=== PATIENT | male | born 1945 | race Caucasian/White ===

== ENCOUNTER 2017-03-20 09:46 | Emergency (ER) | payer MEDICARE, OTHER ==
[~2017-03-20] VITALS: Ht 185.4 cm; Wt 88.5 kg
[2017-03-20] MEDS ORDERED: OMEP20CA12 (09:57)
[2017-03-20] MEDS ORDERED: NEBI5TAB8 (09:57)
[2017-03-20] MEDS ORDERED: ISOS30TA3 (09:57)
[2017-03-20] MEDS ORDERED: LISI1TAB10 (09:57)
[2017-03-20] MEDS ORDERED: KETOROLAC 60 MG/2 ML VIAL IM STA (09:57)
--- NOTE | 2017-03-20 10:11 | ED Upper Extremity ---
General Chief Complaint: Upper Extremity Stated Complaint: R WRIST SWELLING/PAIN Source: patient Exam Limitations: no limitations History of Present Illness Time seen by provider: 09:55 Initial Comments Here with complaint of right wrist pain. States that he was working on fence on Wednesday or and night went bowling. However little bit of pain but woke up with more pain Wednesday to the wrist area. Woke up this morning with swelling and more significant pain. Unsure of what caused the injury. States that he did have an injury similar many years ago but has not had problems since like this. Denies numbness of the fingers. Retains movement but painful. Does feel like his fingers are drawing up with the pain and swelling. Ozmar-[id number]. 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 Onset: other (a few days ago) Severity: moderate Pain/Injury Location: left wrist Method of Injury: unknown Modifying Factors: Improves With Immobilization, Worse With Movement Allergies and Home Medications Allergies Coded Allergies: No Known Drug Allergies (Unverified , 06/21/10) Home Medications Isosorbide Mononitrate 30 Mg Tab.er.24h, (Reported) Lisinopril/Hydrochlorothiazide 1 Each Tablet, (Reported) Nebivolol HCl 5 Mg Tablet, (Reported) Omeprazole 20 Mg Capsule., (Reported) Constitutional: see HPI, No chills, No fever Respiratory: no symptoms reported Cardiovascular: no symptoms reported Musculoskeletal: see HPI, joint pain, joint swelling, muscle pain Skin: change in color, No lesions, No rash Psychiatric/Neurological: No Symptoms Reported Past Icljqrt-Nippbu-Wtzlje Hx Patient Social History Alcohol Use: Denies Use Recreational Drug Use: No Smoking Status: Former Smoker Recent Foreign Travel: No Contact w/Someone Who Travel: No Surgeries History of Surgeries: No Cardiovascular History of Cardiac Disorders: Yes Cardiac Disorders: Hypertension Integumentary History of Skin or Integumenta: No Reviewed Nursing Assessment Reviewed/Agree w Nursing PMH: Yes Family Medical History Significant Family History: No Pertinent Family Hx Physical Exam Vital Signs Vital Sign - Last 12Hours 03/20/17 09:49 Temp 96.3 Pulse 65 Resp 18 B/P (MAP) 145/88 Pulse Ox 95 O2 Delivery Room Air Capillary Refill : General Appearance: WD/WN, no apparent distress Cardiovascular: regular rate, rhythm, no murmur Respiratory: lungs clear, normal breath sounds Wrist: Yes bone tenderness, Yes limited ROM, Yes pain, Yes soft tissue tenderness, Yes swelling (swollen to the right wrist especially on the dorsum. Mild erythema noted to the area of swelling.) Neurologic/Psychiatric: alert, oriented x 3 Skin: normal color, warm/dry Progress/Results/Core Measures Results/Orders My Orders Orders - TAMIR BRYAN MD Ketorolac Injection (Toradol Injection) (03/20/17 09:57) Wrist, Right, 3 Views Or More (03/20/17 09:57) Vital Signs/I&O Vital Sign - Last 12Hours 03/20/17 09:49 Temp 96.3 Pulse 65 Resp 18 B/P (MAP) 145/88 Pulse Ox 95 O2 Delivery Room Air Progress Note : Progress Note Seen and evaluated. Toradol 60 mg IM. X-ray right wrist ordered. Monitor patient. 1050: X-ray noted. Right wrist splint placed. Dr. Jain, Orthopedist paged for discussion. Diagnostic Imaging Diagonstic Imaging: Xray Plain Films/CT/US/NM/MRI: other (wrist) Comments VIA [facility]. [place], [place] NAME: RENETTA BANEGAS [facility] REC#: [id number] PT STATUS: REG ER : 1945 PHYSICIAN: TAMIR BRYAN MD ADMIT DATE: 03/20/17/ER Draft Date of Exam:03/20/17 WRIST, RIGHT, 3 VIEWS OR MORE Right wrist series. INDICATION: Wrist pain and wrist injury. FINDINGS: On the lateral view, there is abnormal ossification demonstrated on the dorsal aspect of the wrist at a typical location for a triquetral fracture. No other fractures are evident. Wrist alignment is unremarkable. There are osteoarthritic changes of the radiocarpal joint and also at the first carpometacarpal joint. IMPRESSION: 1. Findings compatible with a triquetral fracture. No other fractures are evident. Alignment is normal. Background features of radiocarpal and first carpometacarpal osteoarthritic changes are present. Dictated on workstation # [id number] Dict: 03/20/17 1017 Trans: 03/20/17 1028 [facility] [id number] Interpreted by: AARON VIVAR MD Electronically signed by: Departure Impression Impression: Primary Impression: Fracture of triquetrum of right wrist Qualified Codes: S62.111A - Displaced fracture of triquetrum [cuneiform] bone , right wrist, initial encounter for closed fracture Disposition: HOME, SELF-CARE Condition: Stable Departure-Patient Inst. Decision time for Depature: 11:00 Referrals: JENELLE GARZA MD (PCP/Family) Primary Care Physician SABA BLACKWELL PAUL W DO Patient Instructions: Wrist Fracture (DC) Add. Discharge Instructions: All discharge instructions reviewed with patient and/or family. Voiced understanding. Take medications as directed. Keep splint on at all times except when showering. You may use ice packs over area of concern 20 minutes per hour as needed for swelling and pain. Elevate the wrist to decrease swelling as needed. Call the orthopedic physician listed on Wednesday for recheck and for further evaluation. Return for worse pain, swelling, weakness or other concerns as needed. Scripts Hydrocodone/Acetaminophen (Hydrocodon -Acetaminophen 5-325) 1 Each Tablet 1-2 EACH PO Q6H Y for PAIN-MODERATE, #15 TAB 0 Refills Prov: TAMIR BRYAN MD 03/20/17 TAMIR BRYAN MD Mar 20, 2017 10:10
--- NOTE | 2017-03-20 10:25 | Diagnostic Imaging Report ---
Right wrist series. INDICATION: Wrist pain and wrist injury. FINDINGS: On the lateral view, there is abnormal ossification demonstrated on the dorsal aspect of the wrist at a typical location for a triquetral fracture. No other fractures are evident. Wrist alignment is unremarkable. There are osteoarthritic changes of the radiocarpal joint and also at the first carpometacarpal joint. IMPRESSION: 1. Findings compatible with a triquetral fracture. No other fractures are evident. Alignment is normal. Background features of radiocarpal and first carpometacarpal osteoarthritic changes are present. Dictated by: Dictated on workstation # [id number]
[2017-03-20] MEDS ORDERED: HYDR-3812 PO (11:05)
[2017-03-20 11:12] VITALS: BP 145/88
== END 2017-03-20 11:12 | disposition home or self-care (01) ==
LOC: EDUNIT# 09:46 → ER 09:48
DX: S62.111A Displaced fracture of triquetrum [cuneiform] bone, right wrist, initial encounter for closed fracture (principal); I10 Essential (primary) hypertension; Z87.891 Personal history of nicotine dependence; X58.XXXA Exposure to other specified factors, initial encounter; Y93.54 Activity, bowling
CPT/HCPCS: 29125; 73110; 96372

== ENCOUNTER → 2017-05-17 | Outpatient (CLI) | payer MEDICARE, OTHER ==
[~2017-05-17] MED LIST: HYDR-3812 PO; ISOS30TA3; LISI1TAB10; NEBI5TAB8; OMEP20CA12
--- NOTE | 2017-05-17 17:18 | Diagnostic Imaging Report ---
PROCEDURE: MRI right joint upper extremity without contrast. TECHNIQUE: Multiplanar, multisequence non contrast-enhanced MRI of the right upper extremity was accomplished. INDICATION: Wrist pain. COMPARISON: Right wrist radiographs of 03/20/17. FINDINGS: Intrinsic ligaments: Evaluation of the intrinsic ligaments of the wrist is limited without intra-articular contrast. Allowing for this, the TFC articular disc has heterogeneous intrinsic signal indicative of degenerative intrasubstance tearing. There is likely a central perforating tear which is degenerative in nature. The scapholunate ligament is likely disrupted resulting in dorsal intercalated segmental instability of the lunate). Assessment of the lunotriquetral ligament is very limited without contrast. Bones and cartilage: Anterior subluxation of the lunate with dorsal tilt. There is abnormal edema throughout the lunate and capitate which is likely degenerative in nature due to altered biomechanics from the dizzy deformity. There is also subchondral bone marrow edema in proximal pole of the scaphoid with associated full-thickness chondromalacia of the distal radial articular surface. No fracture. Tendons: Minimal tenosynovitis of the fourth extensor compartment. No tendon tear. The flexor tendons are normal. Soft tissues: No ganglion about the wrist. Mild synovitis throughout the carpus is likely degenerative in nature. IMPRESSION: 1. 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 No scapholunate advanced collapse (SLAC wrist). 2. Degenerative bone marrow edema throughout the lunate and capitate, as well as less advanced scattered foci of degenerative bone marrow edema in the proximal carpal row. 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 3. Mild tenosynovitis of the fourth extensor compartment (extensor digiti) may be degenerative or reactive in nature. Dictated by: Dictated on workstation # [id number]
== END ==
LOC: RAD 14:42
PROVIDERS: ATTEND Nurse Practitioner Family
DX: S63.591A Other specified sprain of right wrist, initial encounter (principal); M89.8X0 Other specified disorders of bone, multiple sites; M94.231 Chondromalacia, right wrist
CPT/HCPCS: 73221

== ENCOUNTER 2019-05-10 16:52 | Emergency (ER) | payer MEDICARE, OTHER ==
[~2019-05-10] VITALS: Ht 182.8 cm; Wt 86.3 kg
[~2019-05-10 16:52] MED LIST changes: +ACHD5005 PO; -HYDR-3812 PO; -OMEP20CA12; +OMEP20CA13
[2019-05-10] MEDS ORDERED: ceFAZolin INJECTION 1,000 MG VIAL IM ONE (17:15)
[2019-05-10] MEDS ORDERED: BUPIVACAINE 0.5% 30 ML (SENSORCAINE) VIAL INJ ONE (17:15)
[2019-05-10] MEDS ORDERED: TETANUS,DIPTH,PERTUSS P/F (BOOSTRIX) 0.5 ML VIAL IM ONE (17:15)
[2019-05-10] MEDS ORDERED: HYDROcodone/APAP 5 MG/325 MG (LORTAB) TAB PO ONE (17:15)
[2019-05-10] MEDS ORDERED: WATER (STERILE) FOR INJECTION 10 ML ONE ×2 (17:18→17:29)
--- NOTE | 2019-05-10 17:20 | ED Upper Extremity ---
General Chief Complaint: Upper Extremity Stated Complaint: CUT PART OF FINGER OFF Nursing Triage Note: Pt cut off portion of L thumb on table saw. Bleeding controlled with pressure. Pt does report taking blood thinners. Nursing Sepsis Screen: No Definite Risk Source: patient Exam Limitations: no limitations History of Present Illness Date Seen by Provider: May 10, 2019 Time Seen by Provider: 17:19 Initial Comments To ER with reports that he cut off the lateral tip of his left thumb on a table saw just prior to arrival. Tetanus is not up-to-date. Onset: just prior to arrival Severity: moderate Pain/Injury Location: left thumb Modifying Factors: Worse With Movement Allergies and Home Medications Allergies Coded Allergies: No Known Drug Allergies (Unverified , 06/21/10) Home Medications Hydrocodone Bit/Acetaminophen 1 Each Tablet, 1-2 EACH PO Q6H PRN for PAIN- MODERATE Prescribed by: TAMIR BRYAN on 03/20/17 1105 Patient Home Medication List Home Medication List Reviewed: Yes Review of Systems Constitutional: see HPI EENTM: see HPI Respiratory: no symptoms reported Cardiovascular: no symptoms reported Genitourinary: no symptoms reported Musculoskeletal: see HPI Skin: no symptoms reported Psychiatric/Neurological: No Symptoms Reported Past Unrnswe-Gvpzdb-Srkhka Hx Patient Social History Alcohol Use: Denies Use Recreational Drug Use: No 2nd Hand Smoke Exposure: No Recent Foreign Travel: No Contact w/Someone Who Travel: No Recent Infectious Disease Expo: No Past Medical History Surgeries: No Cardiac: Yes Hypertension Integumentary: No Family Medical History No Pertinent Family Hx Physical Exam Vital Signs Vital Signs - First Documented 05/10/19 16:53 Temp 36.9 Pulse 91 Resp 15 B/P (MAP) 160/97 (118) Pulse Ox 96 O2 Delivery Room Air Capillary Refill : Less Than 3 Seconds Height, Weight, BMI Height: 6'1.00" Weight: 195lbs. oz. 88.923830xg; 25.00 BMI Method:Stated General Appearance: WD/WN, no apparent distress HEENT: PERRL/EOMI, normal ENT inspection Respiratory: no respiratory distress, no accessory muscle use Shoulder: normal inspection, non-tender Elbow/Forearm: normal inspection, non-tender, Left Wrist: Yes normal inspection, Yes non-tender Hand: Left, laceration, nail injury Neurologic/Tendon: normal sensation, normal motor functions, normal tendon functions Neurologic/Psychiatric: alert, normal mood/affect, oriented x 3 Skin: normal color, warm/dry Procedures/Interventions Wound Location: Upper Extremities Wound Length (cm): 4 Wound's Depth, Shape: linear, bone Wound Explored: clean Irrigated w/ Saline (ccs): 60 Anesthesia: 1% Lidocaine Suture: Prolene Suture Size: 4-0 Number of Sutures: 7 Layer Closure?: 1 Number Deep Layer Sutures: 0 Progress Digital block was done using a 50-50 mixture of 2.5 mL of 1% lidocaine without epinephrine, 2.5% bupivacaine without epinephrine. The bone that was sticking out beyond the tissues was Marc down. About three fourths of the distal nail is gone. The contused devitalized tissues were debrided. 4-0 Prolene sutures simple F and style was then used to close the wound loosely. This was covered with oil emulsion and tube gauze. Progress/Results/Core Measures Results/Orders My Orders Orders - CHERYL HENDRICKS APRN Bupivacaine 0.5% Injection (Sensorcaine (05/10/19 17:15) Dipht,Pertuss(Acell),Tet Adult (Boostrix (05/10/19 17:15) Hydrocodone/Apap 5/325 Tablet (Lortab 5 (05/10/19 17:15) Cefazolin Injection (Ancef Injection) (05/10/19 17:15) Hand, Left, 3 Views (05/10/19 17:15) Water (Sterile) For Injection (Sterile W (05/10/19 17:18) Water (Sterile) For Injection (Sterile W (05/10/19 17:29) Rx-Hydrocodone/Apap 5-325 Mg (Rx-Vicodin (05/10/19 19:15) Rx-Cephalexin Capsule (Rx-Keflex Capsule (05/10/19 19:02) Medications Given in ED Current Medications Medications Dose Ordered Sig/Jazmyn Route Start Time Stop Time Status Last Admin Dose Admin Acetaminophen/ Hydrocodone Bitart 1 tab ONCE ONCE PO 05/10/19 17:15 05/10/19 17:16 DC 05/10/19 17:26 1 TAB Vital Signs/I&O 05/10/19 16:53 Temp 36.9 Pulse 91 Resp 15 B/P (MAP) 160/97 (118) Pulse Ox 96 O2 Delivery Room Air Blood Pressure Mean: 118 POS Departure Impression Primary Impression: Traumatic amputation of fingertip Qualified Codes: S68.119A - Complete traumatic metacarpophalangeal amputation of unspecified finger, initial encounter Disposition: HOME, SELF-CARE Condition: Stable Departure-Patient Inst. Decision time for Depature: 19:05 Referrals: JENELLE GARZA MD (PCP/Family) Primary Care Physician Patient Instructions: Amputation of the Finger or Fingertip Add. Discharge Instructions: 1. Return to ER on Wednesday to have the stitches reevaluated and the dressing changed. Antibiotic and pain medication in the meantime. Return to ER for any fevers intolerable pain or other concerns. Scripts Hydrocodone/Acetaminophen ([place] 5-325 Tablet) 1 Each Tablet 1 TAB PO Q4-6HR for Pain MDD 10 TABS for 7 Days, #14 TAB Prov: CHERYL HENDRICKS APRN 05/10/19 Doxycycline Hyclate (Doxycycline Hyclate) 100 Mg Tablet 100 MG PO BID, #20 TAB 0 Refills Prov: CHERYL HENDRICKS APRN 05/10/19 CHERYL HENDRICKS APRN May 10, 2019 17:20 POS
--- NOTE | 2019-05-10 17:51 | Diagnostic Imaging Report ---
EXAMINATION: Left hand 3 views. HISTORY: Laceration. FINDINGS: No comparison available. There is a large soft tissue laceration of the left thumb distally. The tuft of the distal phalanx has been fractured and is within the nearly amputated segment. Small fragments within the wound may represent displaced tiny bone fragments versus foreign debris. IMPRESSION: 1. Near amputation of the left thumb tip with portions of the tuft of the distal phalanx fractured and the present in the nearly amputated soft tissue. 2. High attenuation foci within the lumen may represent foreign debris versus ossific fragments. Dictated by: Dictated on workstation # [id number]
[2019-05-10] MEDS ORDERED: RX-CEPHALEXIN (KEFLEX) 250 MG CAP PPK#4 PO STA (19:02)
[2019-05-10] MEDS ORDERED: HYDR-4226 PO (19:06)
[2019-05-10] MEDS ORDERED: DOXY100T2 PO (19:06)
[2019-05-10] MEDS ORDERED: RX-HYDROCODONE/APAP 5/325 MG #4 TAB PK PO PRN (19:15)
[2019-05-10 19:23] VITALS: BP 160/97
== END 2019-05-10 19:23 | disposition home or self-care (01) ==
LOC: EDUNIT# 16:52 → ER 16:53
DX: S68.011A Complete traumatic metacarpophalangeal amputation of right thumb, initial encounter (principal); I10 Essential (primary) hypertension; Z23 Encounter for immunization; W27.0XXA Contact with workbench tool, initial encounter
CPT/HCPCS: 73130; 90715

== ENCOUNTER → 2021-07-31 | Outpatient (CLI) | payer MEDICARE, OTHER ==
[~2021-07-31] MED LIST changes: +DOXY100T2 PO; +HYDR-4226 PO; -ISOS30TA3; +ISOS30TA82; -LISI1TAB10; +LISI1TAB48; -OMEP20CA13; +OMEP20CA18
--- NOTE | 2021-07-31 15:57 | Diagnostic Imaging Report ---
EXAMINATION: CT chest without contrast. TECHNIQUE: Multiple contiguous axial images were obtained through the chest without the use of intravenous contrast. All CT scans use one or more of the following dose optimizing techniques: automated exposure control, MA and/or KvP adjustment based on patient size and exam type or iterative reconstruction. HISTORY: Cough. History of smoking. COMPARISON: 04/30/2014. FINDINGS: The heart size is within normal limits. No pericardial effusion is present. There is calcified aortic and coronary atherosclerotic plaque. There is no mediastinal, hilar, or axillary lymphadenopathy. Centrilobular emphysema is seen throughout the lungs, greatest in the apices. Nodule is seen in the left upper lobe measuring 0.4 cm. Bronchial wall thickening is seen throughout the lungs. There are no focal areas of consolidation. No central endobronchial obstructing lesions are identified. There is no pleural effusion or pneumothorax. The osseous structures demonstrate no acute abnormalities. Limited views of the upper abdominal structures demonstrate no acute abnormalities. Both adrenal glands are unremarkable. IMPRESSION: 1. Bronchial wall thickening throughout the lungs, suggestive of bronchitis/bronchiolitis. No focal consolidations. 2. Nodule in the left upper lobe measuring 0.4 cm. Given the patient's history of smoking follow-up should be considered in 12 months to ensure stability. 3. Centrilobular emphysema. Dictated by: Dictated on workstation # [id number]
== END ==
LOC: RAD 12:45
PROVIDERS: ATTEND Nurse Practitioner Family
DX: J43.2 Centrilobular emphysema (principal); R91.1 Solitary pulmonary nodule; Z87.891 Personal history of nicotine dependence
CPT/HCPCS: 71250